=== PATIENT | male | born 1955 | race Hispanic/Latino ===

== ENCOUNTER 2024-02-15 23:56 | Emergency (ER) | payer OTHER, SELFPAY ==
[2024-02-16 00:02] VITALS: BP 196/105
[2024-02-16] MEDS: DILAUDID 1 MG IM (00:25)
[2024-02-16 00:26] VITALS: BMI 27.1
--- NOTE | 2024-02-16 00:58 | ED.GENMED ---
History of Present Illness
<Otto Ledesma PA-C - Last Filed: 02/17/24 15:06>
General
Chief Complaint: Musculo-Skeletal Complaint
Time Seen by Provider: 02/16/24 00:09
Travel History
Have you had any contact with someone who has COVID-19?: No
Do you have any symptoms of coronavirus? Fever > 100 degrees, chills, cough, shortness of breath, sore throat, loss of taste or smell, muscle aches, or headache?: No
History of Present Illness
History of Present Illness:
68-year-old male presents to the emergency department for evaluation of right hip pain after jumping from the bed of a truck and landing on both feet. He is having frequent spastic pain and is making difficult radiates from the right groin down to
the right mid thigh. Denies any low back pain or numbness.
Review of Systems
<Otto Ledesma PA-C - Last Filed: 02/17/24 15:06>
Review of Systems
Allergies reviewed?: Yes
All Other Systems: ROS reviewed and negative except as documented in HPI and ROS
Phy Exam
<MARÍA Howard Last Filed: 02/17/24 15:06>
Physical Exam
Physical Exam:
GEN: Well appearing, NAD, WDWN
HEENT: Oral mucosa moist, no scleral icterus
Cardiac: Regular rate
Lung: No respiratory distress, no tachypnea
MSK: No gross deformity or injuries. R hip ROM limited by pain. No shortening or external rotation.
Skin: Good color, no pallor or jaundice, no rashes
Neuro: AO x3, moves all extremities freely
Psych: Calm, cooperative
Course
<Otto Ledesma PA-C - Last Filed: 02/17/24 15:06>
Orders/Labs/Results
Orders:
Orders
02/16/24 00:06
Hip, Right 2-3 Views [CR Hip - RT w/wo Pel 2-3 Vw*] Urgent
Comment:
Reason For Exam: pain
Include a pelvis x-ray?: Yes
02/16/24 00:16
HYDROmorphone [Dilaudid] 1 mg IM NOW STA
02/16/24 01:20
CT Pelvis W/o Iv Contrast Urgent
Comment:
Reason For Exam: R hip/groin pain after a fall
Ketorolac [Toradol] 30 mg IM NOW STA
02/16/24 01:54
Ondansetron Orally Disint [Zofran Odt (Orally Disintegrating)] 4 mg PO NOW STA
Vital Signs
Initial and Last Documented VS:
Initial Vital Signs
Pulse Resp BP Pulse Ox
74 22 196/105 99
02/16/24 00:02 02/16/24 00:02 02/16/24 00:02 02/16/24 00:02
Last Documented Vital Signs
Pulse Resp BP Pulse Ox
79 18 187/90 99
02/16/24 03:20 02/16/24 03:20 02/16/24 01:44 02/16/24 03:20
<Joe Escalera, DO - Last Filed: 02/16/24 03:10>
Orders/Labs/Results
Orders:
Orders
02/16/24 00:06
Hip, Right 2-3 Views [CR Hip - RT w/wo Pel 2-3 Vw*] Urgent
Comment:
Reason For Exam: pain
Include a pelvis x-ray?: Yes
02/16/24 00:16
HYDROmorphone [Dilaudid] 1 mg IM NOW STA
02/16/24 01:20
CT Pelvis W/o Iv Contrast Urgent
Comment:
Reason For Exam: R hip/groin pain after a fall
Ketorolac [Toradol] 30 mg IM NOW STA
02/16/24 01:54
Ondansetron Orally Disint [Zofran Odt (Orally Disintegrating)] 4 mg PO NOW STA
Vital Signs
Initial and Last Documented VS:
Initial Vital Signs
Pulse Resp BP Pulse Ox
74 22 196/105 99
02/16/24 00:02 02/16/24 00:02 02/16/24 00:02 02/16/24 00:02
Last Documented Vital Signs
Pulse Resp BP Pulse Ox
79 18 187/90 99
02/16/24 03:20 02/16/24 03:20 02/16/24 01:44 02/16/24 03:20
<Joe Escalera DO - Last Filed: 02/16/24 03:10>
*Radiology
Radiology exam reviewed: radiology read reviewed
*Pulse Oximetry
Patient hypoxic: no
*Critical Care Note
Total Time (30-74mins, 75-104mins- exclusive of procedures): Not Applicable
Data Reviewed
Source: patient
ED Attending Note
<Otto Ledesma PA-C - Last Filed: 02/17/24 15:06>
-
Portions of this chart may have been created with voice recognition software.� Occasional wrong word or��sound alike� substitutions may have occurred due to the inherent limitations of voice recognition software.
<Joe Escalera DO - Last Filed: 02/16/24 03:10>
ED Attending Note
Patient seen and examined by attending physician: Yes
I performed the substantive portion of visit, reviewed & personally made and approve the management plan that is documented in note by myself or RADHA.: Yes
ED Attending Note:
68-year-old male presents after a fall. Complains of right groin pain. CT shows no fracture but concern for possible rectus femoris injury. On evaluation, patient clearly has pain at the attachment at the ASIS and has pain with hip flexion.
recommended weightbearing as tolerated and outpatient orthopedic follow-up. In addition, patient does admit that he has had urinary leakage and weak stream for an extended period time. He also has had intermittent left flank pain. CT does show an
8 mm stone. I do suspect BPH as well. Start Flomax and refer to urology. No fevers or other signs of infection.
Discharge Plan
Departure
Patient Disposition: Home (Routine Discharge)
Date of Disposition: 02/16/24
Time of Disposition: 02:54
Patient with high blood pressure during this ER visit?: Yes
Discharge Problem:
Strain of right hip, Muscle spasm, Possible rectus femoris injury, Ureterolithiasis
Instructions: Benign prostatic hyperplasia (enlarged prostate), Kidney Stone, Adult ED, Hip Pain ED, Kidney stone diet, BLOOD PRESSURE
Prescriptions:
New
oxycodone 5 mg tablet
5 mg PO Q8H PRN (Reason: Pain) Qty: 8 0RF
tamsulosin [Flomax] 0.4 mg capsule
0.4 mg PO HS Qty: 30 0RF
Referrals:
Rashi Vazquez MD [Active] -
NONE,* [Family Provider] -
Alli Allen MD [Active] -
Activity Restrictions/Additional Instructions:
Possible rectus femoris (leg muscle) injury.
Please ice your injury and rest. Please see orthopedics or your doctor in the next 1 week for follow-up. Return immediately for inability to walk, worsening pain or any other concerns.
In addition, please see urology in the next 1 week. Further evaluation of your urinary symptoms and kidney stone are essential. Return for fevers, vomiting or flank pain.
Interventions
Interventions:
*Risk Screen - Suicide Last Done: 02/16/24 00:26
*General Assessment Last Done: 02/16/24 00:26
*Neglect/Abuse Screening Last Done: 02/16/24 00:26
ED- Fall Risk Assessment Last Done: 02/16/24 01:49
*ED COVID-19 Vaccine History Last Done: 02/16/24 00:26
*Nursing Disposition Last Done: 02/16/24 03:20
ED-Musculoskeletal Assessment Last Done: 02/16/24 01:43
Discharge Date and Time
Discharge Date/Time: 02/16/24 03:50
Print Language: BURKINAN
[2024-02-16] MEDS: TORADOL 30 MG IM (01:30)
[2024-02-16 01:44] VITALS: BP 187/90
== END 2024-02-16 03:50 | disposition home or self-care (01) ==
LOC: EMR 23:56
PROVIDERS: EMERGENCY PHYSICIAN Emergency Medicine
DX: S76.011A Strain of muscle, fascia and tendon of right hip, initial encounter (principal); M62.838 Other muscle spasm; N20.1 Calculus of ureter; X58.XXXA Exposure to other specified factors, initial encounter
CPT/HCPCS: 99284; 96372; 72192; 73502